=== PATIENT | female | born 1995 | race American Indian/Alaskan Native ===

== ENCOUNTER 2018-10-17 18:15 | Emergency (ER) | payer BC, OTHER ==
[2018-10-17] MEDS ORDERED: Sodium Chloride 0.9% 1,000 ML IV ONE (18:43)
[2018-10-17] MEDS ORDERED: Sodium Chloride 0.9% 10 ML Syringe FLUSH PRN (18:43)
[2018-10-17] MEDS ORDERED: Sodium Chloride 0.9% 2.5 ML Syringe FLUSH PRN (18:43)
--- NOTE | 2018-10-17 19:36 | EDM.PDOC ---
ED HPI GENERAL MEDICAL PROBLEM <Jose Petersen - Last Filed: 10/17/18 22:19> - General Source of Information: Reports: Patient History Limitations: Reports: No Limitations left lower quad Pain Score (Numeric/FACES): 9 <Regina Lu - Last Filed: 10/18/18 12:37> - General Chief Complaint: TAPE TRANSFERRER Problem Stated Complaint: PREGNENT AND HAVING PAIN IN BOTTOM L ABDOMAN Time Seen by Provider: 10/17/18 18:23 - History of Present Illness INITIAL COMMENTS - FREE TEXT/NARRATIVE: I've seen and examined the patient and agree with the above No fever nausea vomiting chills sweats no chest pain shortness breath headache dizziness palpitation no bowel or urine symptoms no low back pain fluid leakage or spotting no vaginal discharge per patient No apparent distress HEENT NCAT PERRLA EOMI nares patent oropharynx cl Chest clear CV regular Abdomen benign Extremities four-inch motion no edema CIRCUIT JUDGE alert nonfocal OB ultrasound limited Therapeutics [id number] symptomatic therapies discussed Into new vitamins Impression Round Ligament pain IUP 8 weeks 4 days by ultrasound Definitive disposition and diagnosis as appropriate pending reevaluation and review of above (Jose Petersen) History of present illness: []Patient states her last menstrual period was the end of August and she has been told twice by 2 different tests that she is . Patient complains of left pelvic pain. She denies any vaginal bleeding or discharge. Review of systems: As per history of present illness and below otherwise all systems reviewed and negative. Past medical history: As per history of present illness and as reviewed below otherwise noncontributory. Surgical history: As per history of present illness and as reviewed below otherwise noncontributory. Social history: No reported history of drug or alcohol abuse. Family history: As per history of present illness and as reviewed below otherwise noncontributory. Physical exam: General: Well developed, well nourished in NAD HEENT: Atraumatic, normocephalic, pupils reactive, negative for conjunctival pallor or scleral icterus, mucous membranes moist, throat clear, neck supple, nontender, trachea midline. Lungs: Clear to auscultation, breath sounds equal bilaterally, chest nontender. Heart: S1S2, regular, negative for clicks, rubs, or JVD. Abdomen: NABS, Soft, nondistended, nontender. Negative for masses or hepatosplenomegaly. Negative for costovertebral tenderness. Pelvis: Stable nontender. Genitourinary: Deferred. Rectal: Deferred. Extremities: Atraumatic, negative for cords or calf pain. Neurovascular unremarkable. Neuro: Awake, alert, oriented. Cranial nerves II through XII unremarkable. Cerebellum unremarkable. Motor and sensory unremarkable throughout. Exam nonfocal. Skin:warm and dry Diagnostics: HCG Quant, Rh, CBC Therapeutics: IV hydration, ED Course: Patient signed out to Dr. Petersen to check labs on the diagnosis and disposition. Impression: Prescriptions: Plan: Definitive disposition and diagnosis as appropriate pending reevaluation and review of above. (Regina Lu) - Related Data Allergies Allergy/AdvReac Type Severity Reaction Status Date / Time No Known Allergies Allergy Verified 09/06/18 02:37 Home Meds: Home Meds . [No Known Home Meds] 09/06/18 [History] Past Medical History HEENT History: Reports: None, Impaired Vision Cardiovascular History: Reports: None Respiratory History: Reports: None Gastrointestinal History: Reports: None Genitourinary History: Reports: None TAPE TRANSFERRER History: Reports: None Musculoskeletal History: Reports: None Neurological History: Reports: None Psychiatric History: Reports: Anxiety Endocrine/Metabolic History: Reports: None Immunologic History: Reports: None Oncologic (Cancer) History: Reports: None Dermatologic History: Reports: None - Infectious Disease History Infectious Disease History: Reports: None - Past Surgical History Head Surgeries/Procedures: Reports: None <Regina Lu - Last Filed: 10/18/18 12:37> Social & Family History - Family History Family Medical History: Noncontributory - Tobacco Use Smoking Status *Q: Never Smoker - Caffeine Use Caffeine Use: Reports: Coffee, Energy Drinks, Soda - Recreational Drug Use Recreational Drug Use: No <Regina Lu - Last Filed: 10/18/18 12:37> ED ROS GENERAL - Review of Systems Review Of Systems: See Below <Jose Petersen - Last Filed: 10/17/18 22:19> - Review of Systems Review Of Systems: ROS reveals no pertinent complaints other than HPI. <Regina Lu - Last Filed: 10/18/18 12:37> ED EXAM - Physical Exam Exam: See Below <Jose Petersen - Last Filed: 10/17/18 22:19> - Physical Exam Exam: See Below (The history of present illness) <Regina Lu - Last Filed: 10/18/18 12:37> - Vital Signs Last Recorded V/S: Last Vital Signs Temp 97.9 F 10/17/18 18:43 Pulse 69 10/17/18 23:00 Resp 16 10/17/18 23:00 BP 121/67 10/17/18 23:00 Pulse Ox 96 10/17/18 23:00 - Orders/Labs/Meds Orders: Active Orders 24 hr Category Date Time Status Saline Lock Insert [OM.PC] Stat Oth 10/17/18 18:43 Ordered Labs: Laboratory Tests 10/17/18 10/17/18 10/17/18 Range/Units 18:58 18:58 19:55 HCG, Quant 713675.0 mIU/mL Urine Color YELLOW Urine Appearance CLEAR Urine pH 6.5 (5.0-8.0) Ur Specific [place] 1.025 (1.001-1.035) Urine Protein NEGATIVE (NEGATIVE) mg/dL Urine Glucose (UA) NEGATIVE (NEGATIVE) mg/dL Urine Ketones 40 H (NEGATIVE) mg/dL Urine Occult Blood NEGATIVE (NEGATIVE) Urine Nitrite NEGATIVE (NEGATIVE) Urine Bilirubin NEGATIVE (NEGATIVE) Urine Urobilinogen 0.2 (<2.0) EU/dL Ur Leukocyte Esterase NEGATIVE (NEGATIVE) Urine RBC 0-1 (0-2/HPF) Urine WBC 0-1 (0-5/HPF) Ur Epithelial Cells RARE (NONE-FEW) Urine Bacteria RARE (NEGATIVE) Blood Type O POSITIVE Meds: Medications Discontinued Medications Generic Name Dose Route Start Last Admin Trade Name Freq PRN Reason Stop Dose Admin Sodium Chloride 1,000 mls @ 999 mls/hr 10/17/18 18:43 10/17/18 19:16 Normal Saline IV 10/17/18 19:43 999 mls/hr .Bolus ONE Administration Sodium Chloride 10 ml 10/17/18 18:43 Saline Flush FLUSH ASDIRECTED PRN Keep Vein Open Sodium Chloride 2.5 ml 10/17/18 18:43 Saline Flush FLUSH ASDIRECTED PRN Keep Vein Open Departure - Departure Time of Disposition: 22:21 Condition: Good <Jose Petersen - Last Filed: 10/17/18 22:19> <Regina Lu - Last Filed: 10/18/18 12:37> - Departure Disposition: Home, Self-Care 01 Clinical Impression: Round ligament pain, Intrauterine - Discharge Information Instructions: Round Ligament Pain Referrals: PCP,None [Primary Care Provider] - Forms: ED Department Discharge Additional Instructions: The following information is given to patients seen in the emergency department who are being discharged to home. This information is to outline your options for follow-up care. We provide all patients seen in our emergency department with a follow-up referral. The need for follow-up, as well as the timing and circumstances, are variable depending upon the specifics of your emergency department visit. If you don't have a primary care physician on staff, we will provide you with a referral. We always advise you to contact your personal physician following an emergency department visit to inform them of the circumstance of the visit and for follow-up with them and/or the need for any referrals to a consulting specialist. The emergency department will also refer you to a specialist when appropriate. This referral assures that you have the opportunity for follow-up care with a specialist. All of these measure are taken in an effort to provide you with optimal care, which includes your follow-up. Under all circumstances we always encourage you to contact your private physician who remains a resource for coordinating your care. When calling for follow-up care, please make the office aware that this follow-up is from your recent emergency room visit. If for any reason you are refused follow-up, please contact the [facility] emergency department at and asked to speak to the emergency department charge nurse. - My Orders Last 24 Hours: My Active Orders 10/17/18 18:43 Saline Lock Insert [OM.PC] Stat - Assessment/Plan Last 24 Hours: My Active Orders 10/17/18 18:43 Saline Lock Insert [OM.PC] Stat
--- NOTE | 2018-10-17 22:08 | US ---
INDICATION: pelvic pain, left TECHNIQUE: Ultrasound OB pelvis transvaginal. Real time henriquez scale imaging of the pelvis was performed. COMPARISON: None FINDINGS: Gestational sac: Sonographic imaging demonstrates a single intrauterine gestation with a normal appearance. No evidence of a perigestational hemorrhage is seen. The amount of fluid within the sac appears appropriate for gestational age. Fetus: The embryo demonstrates a regular cardiac rate measuring 174 beats per minute. The embryo`s crown rump length measurement of 21 mm corresponds to a gestational age of 8 weeks, 5 days. There are no gross abnormalities noted within the embryo at this early state of development. There is a normal appearing yolk sac. Placenta: The placenta has not yet developed. Pelvis: The visualized cervix is not seen. The visualized myometrium appears normal. The ovaries are of normal size. Arterial and venous blood flow seen in both ovaries. No significant ascites noted. IMPRESSION: 1. Single viable intrauterine with an estimated gestational age of 8 weeks, 5 days. Dictated by Ernesto Redding MD @ 10/17/2018 10:06:54 PM Dictated by: Ernesto Redding MD @ 10/17/2018 22:07:13 (Electronically Signed)
== END 2018-10-17 23:10 | disposition home or self-care (01) ==
LOC: MW.ED 18:15
DX: O99.89 Other specified diseases and conditions complicating pregnancy, childbirth and the puerperium (principal); R10.2 Pelvic and perineal pain; Z3A.08 8 weeks gestation of pregnancy
CPT/HCPCS: 36415; 76801; 81001; 84702; 86900; 86901; 96360; 96361; 99284; J7040